=== PATIENT | male | born 1995 | race African-American/Black ===

== ENCOUNTER 2020-04-14 11:01 | Emergency (ER) | payer SELFPAY ==
[~2020-04-14] VITALS: Ht 175.3 cm; Wt 58.9 kg
--- NOTE | 2020-04-14 11:10 | NUR ---
NO ANSWER IN LOBBY AT THIS TIME.
[2020-04-14] MEDS ORDERED: LORazepam 1MG TABLET PO ONE (11:30)
[2020-04-14] MEDS ORDERED: LORazepam 1MG TABLET ONE (11:39)
--- NOTE | 2020-04-14 11:46 | NUR ---
BP CUFF, PULSE OX IN PLACE. ATIVAN GIVEN PER ERP ORDER FOR ANXIETY. PT WITH HX OF SAME, DOES NOT TAKE MEDICATION. CALL LIGHT WITHIN REACH.
[2020-04-14 12:24] VITALS: BP 121/61
== END 2020-04-14 12:28 | disposition home or self-care (01) ==
LOC: ED 12:04
DX: F41.1 Generalized anxiety disorder (principal); F17.210 Nicotine dependence, cigarettes, uncomplicated
CPT/HCPCS: 99283